=== PATIENT | female | born 1970 | race Caucasian/White ===

== ENCOUNTER 2017-10-24 10:32 | Emergency (ER) | payer MEDICARE, OTHER ==
[~2017-10-24] VITALS: Ht 162.6 cm; Wt 68.0 kg
[2017-10-24 10:34] VITALS: BP 152/89; PULSE 103; RESP 14; TEMP 98.3; O2SAT 97
[2017-10-24] MEDS ORDERED: CLIN300C5 PO (11:25)
--- NOTE | 2017-10-24 11:26 | PD ---
HPI Chief Complaint: Skin Problem Time Seen by Provider: 11:14 Travel History International Travel<30 days: No Contact w/Intl Traveler<30days: No Traveled to known affect area: No History of Present Illness HPI 47 year old female here with painful swollen insect bite to her right posterior thigh 4 days. Patient does not see or recall specific event where she was bit. She denies fever or chills. The area has become increasingly more painful and has developed a dark central scab with small amount of pussy drainage. No aggravating or alleviating factors. Symptoms is very is moderate. PFSH Past Medical History Medical History: Denies Significant Hx Tetanus Vaccination: > 5 Years ?: Not LMP: 10-17-17 Past Surgical History Surgical History: No Previous Surgery Social History Alcohol Use: No Tobacco Use: Yes Substance Use: No Allergies-Medications (Allergen,Severity, Reaction): Coded Allergies: Sulfa (Sulfonamide Antibiotics) (Verified Adverse Reaction, Intermediate, Nausea/Vomiting, 10/24/17) Reported Meds & Prescriptions Reported Meds & Active Scripts Active No Active Prescriptions or Reported Medications Review of Systems Except as stated in HPI: all other systems reviewed are Neg General / Constitutional: No: Fever Physical Exam Narrative GENERAL: Alert female. Well-appearing. SKIN: Warm and dry. Right posterior thigh she has a 4 cm circular area of erythema with 1 cm area central scab. The area is indurated without fluctuance. No drainage. HEAD: Normocephalic. EYES: No scleral icterus. No injection or drainage. CARDIOVASCULAR: Regular rate and rhythm RESPIRATORY: Breath sounds equal bilaterally. No accessory muscle use. GASTROINTESTINAL: Abdomen soft, non-tender, nondistended. MUSCULOSKELETAL: No cyanosis, or edema. Right posterior thigh she has a 4 cm circular area of erythema with 1 cm area central scab. The area is indurated without fluctuance. No drainage. Data Data Last Documented VS Vital Signs Date Time Temp Pulse Resp B/P (MAP) Pulse Ox O2 Delivery O2 Flow Rate FiO2 10/24/17 10:34 98.3 103 14 152/89 (110) 97 MDM Medical Decision Making Medical Screen Exam Complete: Yes Emergency Medical Condition: Yes Differential Diagnosis Abscess, cellulitis, infected insect bite Narrative Course Patient is well-appearing. Vital signs are stable. She is afebrile. The area is indurated without fluctuance. Incision and drainage is not warranted at this time. She will be put on clindamycin and instructed to apply warm compresses several times per day and follow up with her primary doctor or return to emergency department if she has worsening symptoms Diagnosis Primary Impression: Abscess Referrals: Primary Care Physician Additional Instructions: Apply warm compresses to the area times per day. Take [id number] Motrin 600 800 mg every 6-8 hours as needed for pain. Scripts Clindamycin (Clindamycin) 300 Mg Cap 300 MG PO Q6H for Infection for 10 Days, #40 CAP 0 Refills Prov: Bita Ramos 10/24/17 Disposition: DISCHARGE HOME Condition: Stable Bita Ramos Oct 24, 2017 11:26
== END 2017-10-24 13:29 | disposition home or self-care (01) ==
LOC: NEPK 10:32
DX: L02.415 Cutaneous abscess of right lower limb (principal); Z72.0 Tobacco use
CPT/HCPCS: 99283